=== PATIENT | female | born 1975 | race Two or more races ===

== ENCOUNTER 2020-11-11 14:47 | Emergency (ER) | payer OTHER ==
[2020-11-11 15:57] VITALS: BMI 28.3
[2020-11-11 16:05] LABS: BASO % 0.5 % (0-2.0); EOS % 0.2 % (0-4.5); HEMATOCRIT 35.7 % (32.4-45.2); HEMOGLOBIN 12.2 GM/dL (10.7-15.3); LYMPH % 11.8 % (8-40); MCH 30.5 pg (25.7-33.7); MEAN CELL VOLUME 89.7 fl (80-96); MEAN PLT VOLUME 8.9 fl (7.5-11.1); MONO % 7.5 % (3.8-10.2); PLATELET COUNT 269 K/MM3 (134-434); RBC 3.98 M/mm3 (3.60-5.2); RDW 13.2 % (11.6-15.6); WHITE BLOOD COUNT 16.6 K/mm3 (4.0-10.0)
[2020-11-11 16:21] LABS: CHLORIDE 107 mmol/L (98-107); POTASSIUM 4.1 mmol/L (3.5-5.1); SODIUM 141 mmol/L (136-145)
[2020-11-11 16:22] LABS: ALBUMIN 3.9 g/dl (3.4-5.0); CALCIUM 9.2 mg/dL (8.5-10.1)
[2020-11-11 16:23] LABS: ANION GAP 8 MMOL/L (8-16); BLOOD UREA NITROGEN 13.5 mg/dL (7-18); CO2 26 mmol/L (21-32); GLUCOSE,RANDOM 92 mg/dL (74-106); MAGNESIUM 2.4 mg/dL (1.8-2.4)
[2020-11-11 16:26] LABS: CREATININE 0.7 mg/dL (0.55-1.3); SGOT/AST 22 U/L (15-37); SGPT/ALT 32 U/L (13-61)
[2020-11-11 16:27] LABS: BILIRUBIN,TOTAL 0.3 mg/dL (0.2-1); TOT PROT 8.2 g/dl (6.4-8.2)
[2020-11-11 16:28] LABS: ALK PHOS 105 U/L (45-117)
[2020-11-11] MEDS ORDERED: SODIUM CHLORIDE 1,000 ML IV STA (16:30)
[2020-11-11 17:10] LABS: URINE APPEARANCE CLOUDY; URINE BILIRUBIN NEGATIVE (NEGATIVE); URINE COLOR YELLOW; URINE GLUCOSE (UA) NEGATIVE (NEGATIVE); URINE KETONE NEGATIVE (NEGATIVE); URINE LEUK ESTERASE NEGATIVE (NEGATIVE); URINE NITRITE NEGATIVE (NEGATIVE); URINE PROTEIN NEGATIVE (NEGATIVE); URINE UROBILINOGEN 0.2 mg/dL (0.2-1.0)
[2020-11-11 17:14] LABS: EPI CELLS >36 /uL (0-25.1); HYALINE CASTS 1 /uL (0-3.1); URINE BACTERIA 464 /uL (0-1359); URINE RBC 5 /uL (0-23.9); URINE WBC 18 /uL (0-25.8)
[2020-11-11] MEDS ORDERED: ACETAMINOPHEN 1000 MG/100 ML VIAL (NON FORMULARY) IVPB ONE (17:45)
[2020-11-11] MEDS ORDERED: ACETAMINOPHEN INJECTION 100 ML IVPB ONE (17:51)
[2020-11-11] MEDS ORDERED: CEPHALEXIN MONOHYDRATE 500 MG CAPSULE (UD) PO ONE (18:46)
[2020-11-11] MEDS ORDERED: CEPHALEXIN MONOHYDRATE 500 MG CAPSULE (UD) ONE (18:55)
[2020-11-11] MEDS ORDERED: levETIRAcetam 500 MG/5 ML INJECTION VIAL IVPB ONE ×2 (18:57→19:24)
[2020-11-11 20:14] VITALS: BP 105/72; PULSE 86; TEMP 98.4
== END 2020-11-11 21:42 | disposition home or self-care (01) ==
LOC: JER 14:47
DX: R56.9 Unspecified convulsions (principal)
CPT/HCPCS: 36415; 70450-TC; 71046-TC-FY; 72125-TC; 80053; 80307; 81003; 82550; 82553; 83605; 83735; 84484; 84703; 85025; 87086; 93005; 93010; 99285-25; C9803; J0131; U0003

== ENCOUNTER 2023-11-14 03:37 | Observation (INO) | payer OTHER ==
[2023-11-14 03:44] VITALS: BMI 29.2
[2023-11-14 04:19] LABS: BASO % 0.5 % (0-2.0); EOS % 0.1 % (0-4.5); HEMATOCRIT 38.3 % (32.4-45.2); HEMOGLOBIN 13.2 GM/dL (10.7-15.3); LYMPH % 29.9 % (8-40); MCH 31.2 pg (25.7-33.7); MCHC 34.5 g/dl (32.0-36.0); MEAN CELL VOLUME 90.5 fl (80-96); MEAN PLT VOLUME 8.6 fl (7.5-11.1); MONO % 18.7 % (3.8-10.2); NEUT % 50.8 % (42.8-82.8); PLATELET COUNT 218 10^3/uL (134-434); RBC 4.23 M/mm3 (3.60-5.2); RDW 13.4 % (11.6-15.6); WHITE BLOOD COUNT 6.3 K/mm3 (4.0-10.0)
[2023-11-14 04:26] LABS: INR 1.21 (0.83-1.09)
[2023-11-14 04:42] LABS: CHLORIDE 108 mmol/L (98-107); POTASSIUM 3.7 mmol/L (3.5-5.1); SODIUM 142 mmol/L (136-145)
[2023-11-14 04:44] LABS: ALBUMIN 3.9 g/dl (3.4-5.0); CALCIUM 8.7 mg/dL (8.5-10.1); GLUCOSE,RANDOM 150 mg/dL (74-106)
[2023-11-14 04:45] LABS: BLOOD UREA NITROGEN 20.7 mg/dL (7-18)
[2023-11-14 04:47] LABS: SGPT/ALT 40 U/L (13-61)
[2023-11-14 04:48] LABS: SGOT/AST 24 U/L (15-37)
[2023-11-14 04:49] LABS: BILIRUBIN,TOTAL 0.3 mg/dL (0.2-1); TOT PROT 8.4 g/dl (6.4-8.2)
[2023-11-14 04:51] LABS: ALK PHOS 100 U/L (45-117)
[2023-11-14 05:17] LABS: ANION GAP 9 mmol/L (4-13); CO2 24 mmol/L (21-32)
[2023-11-14 05:23] LABS: METHADONE, UR NEGATIVE (NEGATIVE); PHENCYCLIDINE,URINE NEGATIVE (NEGATIVE); URINE BARBITURATES NEGATIVE (NEGATIVE); URINE BENZODIAZEPINES NEGATIVE (NEGATIVE)
[2023-11-14 05:24] LABS: OPIATES, URI NEGATIVE (NEGATIVE); URINE AMPHETAMINES NEGATIVE (NEGATIVE)
[2023-11-14 05:30] LABS: EPI CELLS >36 /uL (0-25.1); HYALINE CASTS 10 /uL (0-3.1); PH,URINE 5.5 (5.0-8.0); URINE APPEARANCE CLOUDY; URINE BACTERIA 202 /uL (0-1359); URINE BILIRUBIN NEGATIVE (NEGATIVE); URINE COLOR YELLOW; URINE GLUCOSE (UA) NEGATIVE (NEGATIVE); URINE KETONE TRACE (NEGATIVE); URINE LEUK ESTERASE 2+ (NEGATIVE); URINE NITRITE NEGATIVE (NEGATIVE); URINE PROTEIN 2+ (NEGATIVE); URINE RBC 13 /uL (0-23.9); URINE UROBILINOGEN 0.2 mg/dL (0.2-1.0); URINE WBC 336 /uL (0-25.8)
[2023-11-14 05:34] LABS: COCAINE, UR NEGATIVE (NEGATIVE)
[2023-11-14] MEDS ORDERED: ESLICARBAZEPINE ACETATE 600 MG PO SCH (10:00)
[2023-11-14] MEDS: ZONISAMIDE 100 MG CAPSULE PO SCH (10:49)
[2023-11-14] MEDS: carBAMazepine 200 MG TABLET PO SCH (10:49)
[2023-11-15 09:24] LABS: HEMATOCRIT 35.3 % (32.4-45.2); HEMOGLOBIN 12.4 GM/dL (10.7-15.3); MCH 31.4 pg (25.7-33.7); MEAN CELL VOLUME 89.7 fl (80-96); PLATELET COUNT 210 10^3/uL (134-434); RBC 3.93 M/mm3 (3.60-5.2); RDW 13.4 % (11.6-15.6); WHITE BLOOD COUNT 4.5 K/mm3 (4.0-10.0)
[2023-11-15 09:49] LABS: POTASSIUM 3.5 mmol/L (3.5-5.1)
[2023-11-15 09:54] LABS: CALCIUM 8.4 mg/dL (8.5-10.1)
[2023-11-15 09:55] LABS: ALBUMIN 3.5 g/dl (3.4-5.0)
[2023-11-15] MEDS: ENOXAPARIN NA (PORCINE) 40 MG/0.4 ML DISP.SYRIN SQ SCH (09:57)
[2023-11-15 09:58] LABS: CREATININE 0.8 mg/dL (0.55-1.3)
[2023-11-15 09:59] LABS: BILIRUBIN,TOTAL 0.3 mg/dL (0.2-1); TOT PROT 7.6 g/dl (6.4-8.2)
[2023-11-15 13:38] LABS: EPI CELLS 35 /uL (0-25.1); HYALINE CASTS 5 /uL (0-3.1); PH,URINE 5.5 (5.0-8.0); URINE APPEARANCE CLOUDY; URINE BACTERIA 197 /uL (0-1359); URINE BILIRUBIN NEGATIVE (NEGATIVE); URINE COLOR YELLOW; URINE GLUCOSE (UA) NEGATIVE (NEGATIVE); URINE KETONE NEGATIVE (NEGATIVE); URINE LEUK ESTERASE 1+ (NEGATIVE); URINE NITRITE NEGATIVE (NEGATIVE); URINE PROTEIN 1+ (NEGATIVE); URINE RBC 23 /uL (0-23.9); URINE UROBILINOGEN 0.2 mg/dL (0.2-1.0); URINE WBC 132 /uL (0-25.8)
[2023-11-15 15:02] VITALS: RESP 18
[2023-11-15 15:04] VITALS: BP 115/81; PULSE 109; TEMP 99.3
[2023-11-15] MEDS ORDERED: ESLICARBAZEPINE ACETATE 600 MG PO SCH (22:00)
== END 2023-11-15 15:58 | disposition home or self-care (01) ==
LOC: JER 03:37 → JERBED 07:36 → INTOOBSV 07:36 → UNDOADMOB 07:36 → JERBED 10:36 → J7W 19:40
PROVIDERS: ADMIT Internal Medicine; ATTEND Nurse Practitioner Acute Care
PROC: 3E023GC Introduction of Other Therapeutic Substance into Muscle, Percutaneous Approach (ICD-10-PCS; principal; 2023-11-14)
DX: G40.909 Epilepsy, unspecified, not intractable, without status epilepticus (principal); G93.40 Encephalopathy, unspecified; Z85.89 Personal history of malignant neoplasm of other organs and systems; N39.0 Urinary tract infection, site not specified; U07.1 COVID-19; X58.XXXA Exposure to other specified factors, initial encounter; Y93.89 Activity, other specified; Y92.410 Unspecified street and highway as the place of occurrence of the external cause; Z91.199 Patient's noncompliance with other medical treatment and regimen due to unspecified reason
CPT/HCPCS: 0241U-QW; 36415; 70450-TC; 71045-TC-FY; 72125-TC; 80053; 80156; 80164; 80177; 80203; 80307; 81003; 83735; 84100; 84436; 84443; 84484; 85025; 85027; 85610; 87086; 93005; 93010; 96372; 99285-25; G0378